=== PATIENT | male | born 1995 | race Two or more races ===

== ENCOUNTER 2018-09-30 14:44 | Emergency (ER) | payer SELFPAY ==
[~2018-09-30] VITALS: Ht 170.2 cm; Wt 81.6 kg
[2018-09-30 15:00] VITALS: BP 141/86
[2018-09-30] MEDS ORDERED: LIDOCAINE 1% HCL (LOCAL ANESTH.) INJ 20ML MDV IJ ONE (19:30)
[2018-09-30] MEDS ORDERED: IBUPROFEN 800 MG TAB PO ONE (19:30)
[2018-09-30] MEDS ORDERED: TETANUS-DIPTH-ACEL PERTUSSIS 0.5ML SYRG IM ONE (19:45)
[2018-09-30] MEDS ORDERED: cefTRIAXone SOD 1,000 MG VL IM ONE (19:45)
== END 2018-09-30 21:23 | disposition home or self-care (01) ==
LOC: ER 14:44
DX: S01.85XA Open bite of other part of head, initial encounter (principal); S01.81XA Laceration without foreign body of other part of head, initial encounter; W54.0XXA Bitten by dog, initial encounter; Y93.89 Activity, other specified; Y92.89 Other specified places as the place of occurrence of the external cause; Y99.8 Other external cause status
CPT/HCPCS: 12014; 90471; 90715; 96372; 99283; J0696; J2001

== ENCOUNTER 2018-10-02 12:36 | Emergency (ER) | payer MEDICAID ==
[~2018-10-02] VITALS: Ht 170.2 cm; Wt 81.6 kg
[2018-10-02 15:28] VITALS: BP 139/88
[2018-10-02] MEDS ORDERED: BACITRACIN TOP OINT 1 UD PKG TOP ONE (16:15)
== END 2018-10-02 16:23 | disposition home or self-care (01) ==
LOC: ER 12:36
DX: S01.81XD Laceration without foreign body of other part of head, subsequent encounter (principal); X58.XXXD Exposure to other specified factors, subsequent encounter